=== PATIENT | female | born 1990 | race American Indian/Alaskan Native ===

== ENCOUNTER 2021-09-05 19:30 | Emergency (ER) | payer BC, MEDICAID ==
[~2021-09-05] VITALS: Ht 157.5 cm; Wt 97.5 kg
[2021-09-05 19:30] VITALS: BP 130/96
[2021-09-05] MEDS ORDERED: AMOX500T3 PO (21:47)
== END 2021-09-06 00:48 | disposition left against medical advice (07) ==
LOC: ER 19:30
DX: H66.91 Otitis media, unspecified, right ear (principal); Z79.2 Long term (current) use of antibiotics; Z88.1 Allergy status to other antibiotic agents

== ENCOUNTER 2021-12-28 20:42 | Emergency (ER) | payer BC, MEDICAID ==
[~2021-12-28] VITALS: Ht 157.5 cm; Wt 100.0 kg
[~2021-12-28 20:42] MED LIST: AMOX500T3 PO
[2021-12-28 21:40] VITALS: BP 129/87
[2021-12-28 23:09] LABS: Basophils # (auto) 0 10 ^3/uL (0-0.2); Basophils % (auto) 0.4 % (0.0-2.0); Eosinophils # (auto) 0.2 10 ^3/uL (0-0.8); Eosinophils % (auto) 2.7 % (0.0-7.0); Hematocrit 39.3 % (36.0-46.0); Lymphocytes # (auto) 2.6 10 ^3/uL (0.4-5.4); Lymphocytes % (auto) 35.4 % (10.0-50.0); Mean Corpuscular Hemoglobin 29.5 pg (28.0-32.0); Mean Corpuscular Volume 89.3 fL (80.0-100.0); Monocytes # (auto) 0.4 10 ^3/uL (0-1.3); Monocytes % (auto) 5.8 % (0.0-12.0); Neutrophils # (auto) 4.1 10 ^3/uL (1.6-8.6); Neutrophils % (auto) 55.7 % (37.0-80.0); Red Blood Cells 4.41 10^6/uL (4.0-5.20); Red Cell Distribution Width 15.1 % (11.8-14.3); White Blood Cell 7.4 10^3/uL (4.4-10.8)
[2021-12-28 23:24] LABS: Urine Bacteria FEW /hpf (None Seen); Urine Blood Negative /uL (Negative); Urine Mucus FEW (None Seen); Urine Specific Gravity 1.029 (1.001-1.035); Urine WBC 9 /hpf (0 - 5)
[2021-12-28 23:28] LABS: Albumin 3.5 g/dL (3.4-5.0); Calcium 8.7 mg/dL (8.5-10.1); Potassium 3.9 mmol/L (3.5-5.1)
[2021-12-28 23:31] LABS: BUN/Creatinine Ratio 10.5; Bilirubin, Total 0.5 mg/dL (0.2-1.0); Total Protein 7.6 g/dL (6.4-8.2)
[2021-12-29] MEDS ORDERED: cefTRIAXone SOD 1,000 MG VL IM ONE (05:45)
[2021-12-29] MEDS ORDERED: NITR-87 PO (05:48)
== END 2021-12-29 06:24 | disposition home or self-care (01) ==
LOC: ER 20:43
DX: N39.0 Urinary tract infection, site not specified (principal); Z88.1 Allergy status to other antibiotic agents
CPT/HCPCS: 36415; 74176; 80053; 81001; 81025; 83690; 85025

== ENCOUNTER 2022-04-02 07:30 | Emergency (ER) | payer BC, MEDICAID ==
[~2022-04-02] VITALS: Ht 157.5 cm; Wt 102.0 kg
[~2022-04-02 07:30] MED LIST changes: +NITR-87 PO
[2022-04-02] MEDS ORDERED: diphenhdrAMINE HCL 50 MG/1 ML VL IM ONE (09:00)
[2022-04-02 09:12] VITALS: BP 153/116
[2022-04-02 09:52] LABS: Basophils # (auto) 0 10 ^3/uL (0-0.2); Basophils % (auto) 0.4 % (0.0-2.0); Eosinophils # (auto) 0.1 10 ^3/uL (0-0.8); Eosinophils % (auto) 1.3 % (0.0-7.0); Hematocrit 43.9 % (36.0-46.0); Hemoglobin 15.1 g/dL (12.2-16.2); Lymphocytes # (auto) 2.6 10 ^3/uL (0.4-5.4); Mean Corpuscular Hemoglobin 30.5 pg (28.0-32.0); Mean Corpuscular Hgb Conc. 34.3 g/dL (32.0-36.0); Mean Corpuscular Volume 88.9 fL (80.0-100.0); Monocytes # (auto) 0.6 10 ^3/uL (0-1.3); Monocytes % (auto) 6.3 % (0.0-12.0); Neutrophils # (auto) 5.6 10 ^3/uL (1.6-8.6); Nucleated Red Blood Cells % 0.2 %; Red Blood Cells 4.94 10^6/uL (4.0-5.20); Red Cell Distribution Width 13.6 % (11.8-14.3); White Blood Cell 8.8 10^3/uL (4.4-10.8)
[2022-04-02 10:18] LABS: BUN/Creatinine Ratio 17.1; Calcium 9.3 mg/dL (8.5-10.1); Potassium 3.5 mmol/L (3.5-5.1)
== END 2022-04-02 10:28 | disposition home or self-care (01) ==
LOC: ER 07:30
DX: F41.1 Generalized anxiety disorder (principal); Z88.1 Allergy status to other antibiotic agents; Z98.890 Other specified postprocedural states
CPT/HCPCS: 36415; 80048; 84484; 85025; 96372; 99283; J1200

== ENCOUNTER 2022-06-15 00:27 | Emergency (ER) | payer BC, MEDICAID ==
[~2022-06-15] VITALS: Ht 157.5 cm; Wt 100.0 kg
[2022-06-15 00:27] VITALS: BP 131/88
== END 2022-06-15 05:48 | disposition home or self-care (01) ==
LOC: ER 00:27
DX: F41.0 Panic disorder [episodic paroxysmal anxiety] (principal); Z98.890 Other specified postprocedural states